=== PATIENT | male | born 1960 | race Caucasian/White ===

== ENCOUNTER 2021-03-20 12:29 | Emergency (ER) | payer OTHER, SELFPAY ==
[2021-03-20 12:33] VITALS: BP 168/91; PULSE 93; RESP 16; TEMP 36.4; O2SAT 98; BMI 30.7
--- NOTE | 2021-03-20 12:51 | DI.CT.S_ITS ---
PROCEDURE: CT HEAD/BRAIN WO CON INDICATIONS: suden onset of memory loss, no trauma TECHNIQUE: Noncontrast 4.5 mm thick angled axial sections acquired from the foramen magnum to the vertex, with coronal and sagittal reformats. For radiation dose reduction, the following was used: automated exposure control, adjustment of mA and/or kV according to patient size. COMPARISON: None. FINDINGS: Image quality: Excellent. CSF spaces: Basal cisterns are patent. No extra-axial fluid collections. Ventricles are normal in size and shape. Brain: No midline shift. No intracranial masses or hemorrhage. Rutledge-white matter interface is normal. Skull and face: Calvarium and visualized facial bones are intact, without suspicious lesions. Sinuses: Visualized sinuses and mastoids are clear. IMPRESSION: No acute intracranial process. Dictated by: Toy Hawkins M.D. on 03/20/2021 at 12:59 Approved by: Toy Hawkins M.D. on 03/20/2021 at 13:01
--- NOTE | 2021-03-20 13:20 | PC.NURSE ---
Pt declined lab work/ monitoring at this time. Very anxious, verbally reassured. Currently a/o x 4. Wants to wait for Dr. Malik full eval and CT results.
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
[2021-03-20 13:41] LABS: COVID19 -Nasal RAPID Negative (Negative)
== END 2021-03-20 13:53 | disposition home or self-care (01) ==
PROVIDERS: Emergency Provider Emergency Medicine; PCP Internal Medicine
DX: R41.0 Disorientation, unspecified (principal); Z20.822 Contact with and (suspected) exposure to COVID-19
CPT/HCPCS: 70450; 82962; 87635; 93005; 99284; C9803

== ENCOUNTER → 2021-03-27 14:51 | Outpatient (CLI) | payer OTHER, SELFPAY ==
[2021-03-27 15:10] LABS: Add Manual Diff / Slide Review NO; Basophils Absolute Auto 100 /uL (0-100); Basophils Percent Auto 0.6 % (0-2); Eosinophils Absolute Auto 100 /uL (0-450); Eosinophils Percent Auto 0.6 % (2-4); Hematocrit 42.3 % (41-53); Hemoglobin 14.5 g/dL (13.5-17.5); Lymphocytes Absolute Auto 2100 /uL (1100-4500); Lymphocytes Percent Auto 23.3 % (25-40); Mean Corpuscular HGB Conc 34.3 % (30-36); Mean Corpuscular Hemoglobin 33.3 PG (26-34); Monocytes Absolute Auto 700 /uL (0-900); Monocytes Percent Auto 7.4 % (3-14); Neutrophils Absolute Auto 6000 /uL (1500-7000); Neutrophils Percent Auto 68.1 % (50-75); Platelet Count 220 X10^3/uL (150-400); Red Blood Cell Count 4.36 X10^6/uL (4.5-5.9); Red Cell Distribution Width 13.4 % (11.6-14.8); White Blood Cell Count 8.8 X10^3/uL (4.5-11.0)
[2021-03-27 15:31] LABS: Alanine Aminotransferase 31 IU/L (<50); Albumin 4.6 g/dL (3.5-5.0); Albumin Globulin Ratio 1.5 (1.0-2.8); Alkaline Phosphatase 83 U/L (38-126); Aspartate Aminotransferase 40 IU/L (17-59); BUN Creatinine Ratio 30.4 (6-22); Bilirubin Total 0.3 mg/dL (0.2-1.3); Blood Urea Nitrogen 21 mg/dL (9-20); C-Reactive Protein Quant < 0.5 mg/dL (<1.0); Calcium 9.9 mg/dL (8.4-10.2); Carbon Dioxide 28 mmol/L (22-32); Chloride 98 mmol/L (98-107); Estimated Glomerular Filt Rate > 60.0 mL/min (>60); Globulin 3.1 g/dL (1.7-4.1); Glucose 93 mg/dL (70-100); HEMOLYSIS < 15 (0-50); Potassium 4.3 mmol/L (3.4-5.1); Sodium 139 mmol/L (137-145); Total Protein 7.7 g/dL (6.3-8.2)
[2021-03-27 15:35] LABS: Erythrocyte Sedimentation Rate 13 MM/HR (0-15)
[2021-03-27 15:53] LABS: Prolactin 23.7 ng/mL (3.7-17.9)
[2021-03-27 16:07] LABS: TSH w/ Reflex to FT4 0.56 uIU/mL (0.47-4.68)
== END ==
PROVIDERS: PCP Internal Medicine; Referring Provider Internal Medicine; Visit Provider Internal Medicine
DX: R41.0 Disorientation, unspecified (principal); R68.89 Other general symptoms and signs; R56.9 Unspecified convulsions
CPT/HCPCS: 36415; 80053; 84146; 84443; 85025; 85651; 86140

== ENCOUNTER → 2021-05-04 16:41 | Outpatient (CLI) | payer OTHER, SELFPAY ==
[2021-05-04 17:22] LABS: COVID19 -Nasal RAPID Negative (Negative)
== END ==
PROVIDERS: PCP Internal Medicine; Visit Provider Physician Assistant
DX: Z20.822 Contact with and (suspected) exposure to COVID-19 (principal)
CPT/HCPCS: 87635

== ENCOUNTER → 2021-07-24 11:29 | Outpatient (CLI) | payer OTHER, SELFPAY ==
[2021-07-24 12:35] LABS: Add Manual Diff / Slide Review NO; Basophils Absolute Auto 0 /uL (0-100); Basophils Percent Auto 0.6 % (0-2); Eosinophils Absolute Auto 100 /uL (0-450); Eosinophils Percent Auto 1.2 % (2-4); Hemoglobin 13.8 g/dL (13.5-17.5); Lymphocytes Absolute Auto 1700 /uL (1100-4500); Mean Corpuscular HGB Conc 34.4 % (30-36); Mean Corpuscular Hemoglobin 34.7 PG (26-34); Mean Corpuscular Volume 100.9 fL (80-100); Monocytes Absolute Auto 500 /uL (0-900); Monocytes Percent Auto 8.3 % (3-14); Neutrophils Absolute Auto 3300 /uL (1500-7000); Neutrophils Percent Auto 59.9 % (50-75); Platelet Count 189 X10^3/uL (150-400); Red Blood Cell Count 3.96 X10^6/uL (4.5-5.9); White Blood Cell Count 5.6 X10^3/uL (4.5-11.0)
[2021-07-24 12:50] LABS: Erythrocyte Sedimentation Rate 8 MM/HR (0-15)
[2021-07-24 13:07] LABS: Alanine Aminotransferase 43 IU/L (<50); Albumin 4.3 g/dL (3.5-5.0); Albumin Globulin Ratio 1.6 (1.0-2.8); Alkaline Phosphatase 89 U/L (38-126); Aspartate Aminotransferase 50 IU/L (17-59); BUN Creatinine Ratio 16.4 (6-22); Bilirubin Total 0.3 mg/dL (0.2-1.3); Blood Urea Nitrogen 9 mg/dL (9-20); C-Reactive Protein Quant < 0.5 mg/dL (<1.0); Carbon Dioxide 31 mmol/L (22-32); Chloride 103 mmol/L (98-107); Estimated Glomerular Filt Rate > 60.0 mL/min (>60); Globulin 2.7 g/dL (1.7-4.1); Glucose 90 mg/dL (80-110); HEMOLYSIS < 15 (0-50); Potassium 3.9 mmol/L (3.4-5.1); Sodium 141 mmol/L (137-145)
[2021-07-24 14:15] LABS: TSH w/ Reflex to FT4 0.52 uIU/mL (0.47-4.68)
== END ==
PROVIDERS: PCP Internal Medicine; Referring Provider Internal Medicine; Visit Provider Internal Medicine
DX: R41.3 Other amnesia (principal); R63.4 Abnormal weight loss; R41.89 Other symptoms and signs involving cognitive functions and awareness; R56.9 Unspecified convulsions
CPT/HCPCS: 36415; 80053; 84443; 85025; 85651; 86140

== ENCOUNTER → 2022-10-08 08:55 | Outpatient (CLI) | payer OTHER, SELFPAY ==
--- NOTE | 2022-10-08 | DI.RAD.S_ITS ---
PROCEDURE: XR HAND RT 2V INDICATIONS: RIGHT HAND PAIN AND STIFFNESS TECHNIQUE: 2 views of the hand(s) acquired. COMPARISON: None. FINDINGS: Bones: No fractures or dislocations. Carpal bones are normally aligned. Joint space narrowing, subchondral sclerosis and marginal osteophyte formation are noted throughout right hand and wrist joints most notably at 1st CMC joint and scaphoid trapezial joint. No gross bony erosive changes are seen. No suspicious bony lesions. Soft tissues: No suspicious soft tissue calcifications. 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 No fracture or dislocation. No gross bony erosive changes. Dictated by: Andrew Knapp M.D. on 10/08/2022 at 11:37 Approved by: Andrew Knapp M.D. on 10/08/2022 at 11:39
== END ==
PROVIDERS: Referring Provider Internal Medicine Cardiovascular Disease; Visit Provider Internal Medicine Cardiovascular Disease
DX: M25.641 Stiffness of right hand, not elsewhere classified (principal); M79.641 Pain in right hand
CPT/HCPCS: 73120